=== PATIENT | male | born 1985 | race Caucasian/White ===

== ENCOUNTER 2018-07-05 08:32 | Emergency (ER) | payer BC, SELFPAY ==
[2018-07-05 08:33] VITALS: BP 142/77; PULSE 80; RESP 18; TEMP 36.6; O2SAT 98; BMI 23.1
--- NOTE | 2018-07-05 09:06 | ED.VISSUMM ---
- ER Visit Summary Date of Service: 07/05/18 Chief Complaint: Right ear popped and nasal congestion History of Present Illness: The patient is a 33 M no dyspnea past medical history. Patient states has had URI symptoms for last 2 days with nasal congestion. No fever. Minimal cough. Shortness of breath. Today at work he was blowing his nose and he felt a pop and some discomfort in his right ear. That is now resolved. He denies any drainage, discharge or bleeding from his ear. No trouble hearing. Denies any sore throat or trouble swallowing. Physical Examination: Well-appearing young male. Vital signs are stable. He is afebrile. Pulse ox 90% on room air no hypoxia. HEENT exam posterior pharynx moist and pink. No erythema or exudate. No trouble swallowing or breathing. No drooling or stridor. Left TM and canal normal. Right TM and canal normal. No signs of perforation. No blood. No otitis media. Neck nontender no lymphadenopathy. Lungs a few scattered wheezes on the patient's smoking history. No rales, no rhonchi no signs of pneumonia. Test Results: None Emergency Department Course and Treatment: Plenty of fluids and rest. Motrin as needed. Viral URI symptomatic treatment. Treatment Plan: Viral URI symptomatic treatment. Disposition: Discharge Impression: Viral URI with nasal congestion This note was generated with [employer] dictation software. It may contain incorrect words, spelling, and punctuation that were not noted in review of the chart prior to signing ED Disposition - Plan for ED Patient: Referrals: Care Physician,No Primary [Primary Care Provider] -
--- NOTE | 2018-07-05 09:08 | ED.DEP ---
ED Disposition - Plan for ED Patient: Disposition: Home or Assisted Living Instructions: ED URI Viral Referrals: Allen Ramirez MD [STAFF PHYSICIAN] - As Needed
== END 2018-07-05 09:13 | disposition home or self-care (01) ==
PROVIDERS: Emergency Provider Emergency Medicine
DX: J06.9 Acute upper respiratory infection, unspecified (principal); R06.2 Wheezing; F17.200 Nicotine dependence, unspecified, uncomplicated
CPT/HCPCS: 99282